=== PATIENT | female | born 1955 | race Caucasian/White ===

== ENCOUNTER → 2020-08-27 11:00 | Outpatient (CLI) | payer OTHER, SELFPAY ==
--- NOTE | ~2020-08-27 | DEXA_ITS ---
Bone Density Report Name: Jacqueline Britt Age: 65 Sex: Female Ethnicity: White Date of : 1955 Indication: postmenopausal; screening for osteoporosis; prior fracture; hysterectomy; Referring Provider: Blanquita, Eneida Galindo Study: Bone densitometry was performed. Exam Date: August 27, 2020 Accession number: [id number] Bone Density: Region BMD T-score Z-score Classification AP Spine (L1, L2, L4) 1.149 1.0 2.7 Normal Femoral Neck (Left) 0.818 -0.3 1.2 Normal Total Hip (Left) 1.085 1.2 2.4 Normal Femoral Neck (Right) 0.760 -0.8 0.7 Normal Total Hip (Right) 1.000 0.5 1.7 Normal Total Hip Mean 1.043 0.9 2.1 Normal World Health Organization criteria for BMD impression classify patients as: Normal (T-score at or above -1.0), Osteopenia (T-score between -1.0 and -2.5), or Osteoporosis (T-score at or below -2.5). 10-year Fracture Risk: FRAX not reported because: All T-scores for Spine Total, Hip Total, Femoral Neck at or above -1.0 Previous Exams: Region Exam Age BMD T-score BMD Change BMD Change Date g/cm2 vs Baseline vs Previous AP Spine(L1, L2, L4) 08/27/2020 65 1.149 1.0 0.239* 0.151* 01/26/2010 54 0.998 -0.3 0.088* 0.059* 12/16/2007 52 0.939 -0.9 0.029* 0.029* 04/04/2006 50 0.910 -1.1 Total Hip(Left) 08/27/2020 65 1.085 1.2 0.082* 0.177* 01/26/2010 54 0.908 -0.3 -0.095* -0.057* 12/16/2007 52 0.965 0.2 -0.038* -0.038* 04/04/2006 50 1.003 0.5 Total Hip(Right) 08/27/2020 65 1.000 0.5 0.070* 0.177* 01/26/2010 54 0.823 -1.0 -0.107* -0.056* 12/16/2007 52 0.880 -0.5 -0.050* -0.050* 04/04/2006 50 0.930 -0.1 *Denotes significance at 95% confidence level, LSC for AP Spine = 0.022 g/cm2, LSC for Total Hip = 0.027 g/cm2 Clinical Information Provided by Patient: Has had a low trauma fracture Has used the following medications: Vitamin D, LEVOTHYROXIN Has the following medical conditions: Hysterectomy Patient maximum height was 62.0 Menopause Age: 33 No regular weight bearing exercise Does not regularly consume dairy products Onset of menses at age 13 Number of children 2 Impression: The patient has normal bone mass. The patient has risk factors, including: previous fracture. No significant bone loss was observed. Discussion: BONE D
== END ==
PROVIDERS: Visit Provider Nurse Practitioner Obstetrics & Gynecology
DX: M81.0 Age-related osteoporosis without current pathological fracture (principal)
CPT/HCPCS: 77080

== ENCOUNTER 2023-09-17 13:30 | Emergency (ER) | payer MEDICARE, SELFPAY ==
--- NOTE | ~2023-09-17 | XR_ITS ---
EXAMINATION: XR hip RT 2V w AP pelvis DATE: 09/17/2023 13:43 INDICATION: Right hip pain. TECHNIQUE: An anteroposterior view of the pelvis and 2 views of right hip were obtained. COMPARISON: None. FINDINGS: There is lumbar scoliosis and mild spondylosis. No fracture. There is moderate right hip os teoarthritis and mild left hip osteoarthritis. IMPRESSION: 1. Moderate right hip osteoarthritis and mild left hip osteoarthritis. Reviewed, dictated and finalized at location A. [facility]
--- NOTE | ~2023-09-17 | CT_ITS ---
EXAMINATION: CT lumbar spine wo con DATE: 09/17/2023 16:05 INDICATION: right sided lower back pain down leg . TECHNIQUE: Computed tomography (CT) of the lumbar spine was performed without intravenous contrast. A utomated exposure control and iterative reconstruction technique were employed. The dose-length produ ct was 1174.27 mGy-cm. COMPARISON: CT abdomen pelvis 03/24/2010. FINDINGS: Moderate lumbar scoliosis. 5 nonrib-bearing lumbar-type vertebral bodies. Pedicles intact. 2 mm anterolisthesis at L2-3, likely secondary to degenerative change. Vertebral body heights preserv ed. Multilevel moderate degenerative disc disease. Multilevel moderate facet arthropathy. Moderate ce ntral canal stenosis at L3-4 and L4-5 secondary to degenerative disc and facet change. Moderate right neural foraminal narrowing at L4-5 secondary to degenerative disc change. Diverticulosis. Atheroscle rotic calcifications. Nonobstructing bilateral punctate renal calcifications. IMPRESSION: No acute fracture or traumatic malalignment in the lumbar spine. No severe central canal or neural foraminal narrowing. Multilevel moderate degenerative disc disease and facet arthropathy. Moderate central canal narrowing at L3-4 and L4-5 and moderate right neural foraminal narrowing at L4-5, secondary to degenerative ch ayaz. Reviewed, dictated and finalized at location K. [facility]TER IMPRESSION: No acute fracture or traumatic malalignment in the lumbar spine. No severe central canal or neural foraminal narrowing. Multilevel moderate degenerative disc disease and facet arthropathy. Moderate c entral canal narrowing at L3-4 and L4-5 and moderate right neural foraminal ace rowing at L4-5, secondary to degenerative change.
[2023-09-17 13:30] VITALS: BP 156/89; PULSE 105; RESP 20; TEMP 36.3; O2SAT 99
--- NOTE | 2023-09-17 15:37 | ED.GENADULT ---
HPI - General Adult General Chief complaint: Unspecified Stated complaint: right hip problem Time Seen by Provider: 09/17/23 14:07 History of Present Illness HPI narrative: Patient is a 68-year-old female presenting with lower back pain. Patient states that for the last couple of weeks she has had lower back pain that radiates down her right leg. States that it started after she awkwardly climbed onto a piece of exercise equipment. States that she has had problems with sciatica in the past but normally the pain goes straight down the back of her leg not on the outer side of her leg. No numbness or weakness, saddle anesthesia, bladder or bowel incontinence. States that she has been using Tylenol with minimal relief. She denies recent trauma. No fevers. No further complaints. Related Data Allergies Allergy/AdvReac Type Severity Reaction Status Date / Time No Known Allergies Allergy Unverified 10/06/15 13:48 Review of Systems Review of Systems: All systems reviewed & are unremarkable except as noted in HPI and below PMFSH Family History Family History Other Asthma Depression Diabetes mellitus Family history of Alzheimer's disease Family history of chronic obstructive pulmonary disease Family history of thyroid disease Hypertension Social History Social History Alcohol intake: current Exam Narrative: GENERAL: Well-appearing, In no acute distress, pleasant cooperative HEAD: Normocephalic, atraumatic. EYES: PERRLA and EOMI. ENT: grossly unremarkable NECK: Supple. BACK: +bilateral paraspinal tenderness of lumbar spine, R>L, extending into right buttocks CHEST: No respiratory distress. HEART: Regular rate and rhythm EXTREMITIES: Normal range of motion. SKIN: Warm, dry, no rash. NEURO: Alert and oriented x3. 5/5 strength in all extremities, no sensory deficits, ambulating w/o difficulty PSYCH: Normal mood and affect. Course Vital Signs Vital signs: Vital Signs Temperature 97.3 F L 09/17/23 13:30 Pulse Rate 105 H 09/17/23 13:30 Respiratory Rate 20 09/17/23 13:30 Blood Pressure 156/89 H 09/17/23 13:30 Pulse Oximetry 99 09/17/23 13:30 Oxygen Delivery Room Air 09/17/23 13:30 Temperature 97.3 F L 09/17/23 13:30 Pulse Rate 105 H 09/17/23 13:30 Respiratory Rate 20 09/17/23 13:30 Blood Pressure 156/89 H 09/17/23 13:30 Pulse Oximetry 99 09/17/23 13:30 Oxygen Delivery Room Air 09/17/23 13:30 Medical Decision Making MDM Narrative Medical decision making narrative: 68-year-old female presenting with lower back pain that goes down her right leg. Vitals are stable. Exam remarkable for the above. She is neurologically intact. She has never had imaging of her lower back. Will obtain CT lumbar spine. Hip x-ray with osteoarthritis. No acute bony abnormalities. CT lumbar spine with moderate degenerative changes, no evidence of severe central canal narrowing or other emergent abnormality. On re-evaluation, the patient states that her pain has improved following Toradol and Flexeril. Will start her on a steroid burst, send in for more Flexeril. Advised that she continue to use ibuprofen and Tylenol. Recommend close PCP follow-up. Appropriate return precautions given. Discharged in stable condition. Differential Diagnosis Differential Diagnosis: Lower back pain, lumbar radiculopathy, sciatica, hip pain Medical Records Medical records reviewed: Yes I reviewed the external patient's medical records. Vital Signs Vital Signs: Vital Signs Temperature 97.3 F L 09/17/23 13:30 Pulse Rate 105 H 09/17/23 13:30 Respiratory Rate 09/17/23 13:30 Blood Pressure 156/89 H 09/17/23 13:30 Pulse Oximetry 99 09/17/23 13:30 Oxygen Delivery Room Air 09/17/23 13:30 Temperature 97.3 F L 09/17/23 13:30 Pulse Rate 105 H 09/17
[2023-09-17] MEDS: KETOROLAC 30 MG/ML VIAL (*BKC) IM (16:13)
[2023-09-17] MEDS: CYCLOBENZAPRINE HCL 10 MG TABLET PO (16:13)
== END 2023-09-17 17:45 | disposition home or self-care (01) ==
PROVIDERS: Emergency Provider Emergency Medicine; PCP Family Medicine
DX: M51.16 Intervertebral disc disorders with radiculopathy, lumbar region (principal); M16.0 Bilateral primary osteoarthritis of hip
CPT/HCPCS: 72131; 73502; 96372; 99284; A9270; J1885

== ENCOUNTER 2024-01-10 13:17 | Outpatient (CLI) | payer MEDICARE, SELFPAY ==
--- NOTE | ~2024-01-10 | DEXA_ITS ---
? Bone Density Report? Name:? JEM LOWRY I Patient ID:??? [id number] Age:? 68 Sex:? Female Ethnicity:? White Date of : 1955 Indication: postmenopausal; screening for osteoporosis; height loss; prior fracture; hysterectomy; Referring Provider: JOSE FLOWERS Study: Bone densitometry was performed. Exam Date: January 10, 2024 Accession number: [id number] Bone Density: Region? BMD??? T-score? Z-score?? Classification AP Spine(L1, L3, L4)? 1.208??? 1.4?3.4? Normal Femoral Neck (Left)? 0.818?? -0.3? 1.4? Normal Total Hip (Left)? 0.983??? 0.3? 1.7? Normal Femoral Neck (Right)? 0.764?? -0.8? 0.9? Normal Total Hip (Right)? 0.915?? -0.2? 1.1? Normal Femoral Neck Mean? 0.791?? -0.5? 1.1? Normal Total Hip Mean? 0.949??? 0.1? 1.4? Normal World Health Organization criteria for BMD impression classify patients as: Normal (T-score at or above -1.0), Osteopenia (T-score between -1.0 and -2.5), or Osteoporosis (T-score at or below -2.5). 10-year Fracture Risk: FRAX not reported because: ? All T-scores for Spine Total, Hip Total, Femoral Neck at or above -1.0 Clinical Information Provided by Patient: Has had a low trauma fracture Has used the following medications: Vitamin D Has the following medical conditions: Hysterectomy Patient maximum height was 61.5 Menopause Age: 33 Does not regularly consume dairy products Drinks caffeinated beverages Onset of menses at age 13 Number of children 2 Impression: The patient has normal bone mass. The patient has risk factors, including: previous fracture. Discussion: BONE DENSITY IS ABOVE THE MINIMUM DESIRABLE LEVEL AT ALL SKELETAL SITES TESTED. This patient?s bone mineral density is above the minimum desirable level (T- score -1.0 or better) at all sites measured. The patient should follow a healthful lifestyle (good nutrition with adequate calcium and vitamin D, and appropriate weight-bearing exercise). Follow-Up: Consider repeating this study in 5 years or sooner if there is some new clinical indication. Reported by: Dr. Giorgio Carr on 43:03:00 PM. [email or web address]
== END 2024-01-10 13:18 | disposition home or self-care (01) ==
LOC: CHSIMG 13:19
PROVIDERS: PCP Nurse Practitioner Family; Visit Provider Nurse Practitioner Family
DX: Z78.0 Asymptomatic menopausal state (principal)
CPT/HCPCS: 77080

== ENCOUNTER 2024-07-15 11:04 | Outpatient (CLI) | payer MEDICARE, SELFPAY ==
--- NOTE | 2024-07-15 11:17 | ECG_ITS ---
Test Date: 2024-07-15 11:24:44 Measurements Intervals [place] Rate: 73 P: 65 [place]: 154 QRS: 49 QRSD: 85 T: 63 QT: 356 QTc: 394 Interpretive Statements SINUS RHYTHM No previous ECG available for comparison Electronically Signed On 07-15-2024 13:58:58 CDT by Odalys Sosa M.D.
== END 2024-07-15 11:05 | disposition home or self-care (01) ==
PROVIDERS: PCP Nurse Practitioner Family; Visit Provider Nurse Practitioner Family
DX: Z01.810 Encounter for preprocedural cardiovascular examination (principal); I49.8 Other specified cardiac arrhythmias
CPT/HCPCS: 93005